=== PATIENT | female | born 2000 | race Caucasian/White ===

== ENCOUNTER 2020-12-24 19:21 | Emergency (ER) | payer OTHER ==
[~2020-12-24] VITALS: Ht 162.6 cm; Wt 103.0 kg
[2020-12-24 19:40] VITALS: BP 124/66
== END 2020-12-24 20:00 | disposition left against medical advice (07) ==
LOC: ER 19:47
DX: Z53.21 Procedure and treatment not carried out due to patient leaving prior to being seen by health care provider (principal)